=== PATIENT | female | born 1975 | race Caucasian/White ===

== ENCOUNTER 2023-02-01 14:26 | Outpatient (CLI) | payer OTHER, SELFPAY | END 2023-02-01 14:27 | disposition home or self-care (01) | LOC: NFLDREF 02-02 11:38 | PROVIDERS: PCP Family Medicine; Referring Provider Family Medicine; Visit Provider Family Medicine | DX: R35.0 Frequency of micturition (principal); N39.0 Urinary tract infection, site not specified | CPT/HCPCS: 87086; 87186 ==